=== PATIENT | male | born 1960 | race African-American/Black ===

== ENCOUNTER 2025-08-01 13:34 | Inpatient (IN) | payer OTHER ==
[~2025-08-01] VITALS: Ht 177.8 cm; Wt 110.2 kg
[2025-08-01 13:38] VITALS: O2SAT 98
[2025-08-01] MEDS: SODIUM CHLORIDE 0.9% 1,000 ML IV ONE (14:13)
[2025-08-01 14:45] LABS: BASOPHILS % 0.7 % (0.0-2.0); EOSINOPHILS % 1.4 % (0.0-5.0); HEMATOCRIT. 47.5 % (42.0-52.0); HEMOGLOBIN. 16.3 g/dL (14.0-18.0); LYMPHOCYTES % 16.9 % (20.0-50.0); MEAN PLATELET VOLUME 10.0 fl (7.4-10.4); MONOCYTES % 8.0 % (2.0-8.0); NEUTROPHILS % 73.0 % (40.0-76.0); PLATELET 304 x1000/uL (130-400); RED BLOOD CELL COUNT 5.08 mill/uL (4.7-6.1); RED CELL DISTRIBUTION WIDTH 12.8 % (11.6-14.6)
[2025-08-01 14:56] LABS: CREATININE 1.2 mg/dL (0.6-1.3); UREA NITROGEN BLOOD 14 mg/dL (9-23)
[2025-08-01 14:57] LABS: PROTEIN TOTAL 6.9 g/dL (6.0-8.3)
[2025-08-01 14:58] LABS: ASPARTATE AMINOTRANSFERASE 21 IU/L (<34); BILIRUBIN DIRECT 0.3 mg/dL (<=3.0); BILIRUBIN TOTAL 0.9 mg/dL (0.1-1.0)
[2025-08-01 14:59] LABS: TROPONIN I HIGH SENSITIVITY 64 ng/L (3.0-53)
[2025-08-01] MEDS ORDERED: NITROGLYCERIN SPRAY/4.9GM CAN TL ONE (15:15)
[2025-08-01] MEDS: NITROGLYCERIN 0.4MG TABLET SL SL PRN (15:27)
[2025-08-01] MEDS: ASPIRIN 81MG TABLET PO ONE (15:27)
[2025-08-01 16:15] VITALS: BP 147/94; PULSE 89; RESP 20; TEMP 36.9; O2SAT 96
[2025-08-01] MEDS ORDERED: ONDANSETRON HCL 4MG/2ML INJ IV PRN (16:15)
[2025-08-01] MEDS ORDERED: LORAZEPAM 0.5MG TABLET PO PRN (16:15)
[2025-08-01] MEDS ORDERED: GUAIFENESIN 200MG/10ML SUGAR FREE UDC PO PRN (16:15)
[2025-08-01] MEDS ORDERED: CLONIDINE 0.1MG TABLET PO PRN (16:15)
[2025-08-01] MEDS ORDERED: DOCUSATE SODIUM 100MG CAPSULE PO PRN (16:15)
[2025-08-01] MEDS ORDERED: ACETAMINOPHEN 325MG TABLET PO PRN ×2 (16:15)
[2025-08-01] MEDS ORDERED: IPRATROPIUM/ALBUTEROL 0.5-3(2.5)MG/3ML NEB HHN PRN (16:15)
[2025-08-01 16:31] VITALS: BP 147/94; PULSE 89; RESP 20; TEMP 36.9184
[2025-08-01] MEDS: ENOXAPARIN 120MG/0.8ML SYR SUBCUT NR (17:00)
[2025-08-01 18:52] LABS: LDL CHOLESTEROL 101.0 mg/dL (5-100); TRIGLYCERIDE 60.0 mg/dL (0-150)
[2025-08-01 18:56] LABS: T4 FREE 1.52 ng/dL (0.89-1.76)
[2025-08-01 20:47] VITALS: BP 137/82; PULSE 87; RESP 26; TEMP 36.7; O2SAT 97
[2025-08-01] MEDS: METOPROLOL TARTRATE 25MG TABLET PO SCH (20:48)
[2025-08-02] VITALS (7 sets, daily range): BP systolic 128–141; BP diastolic 80–89; PULSE 69–85; RESP 16–22; TEMP 36.7–36.8; O2SAT 97–99
[2025-08-02 03:28] LABS: TROPONIN I HIGH SENSITIVITY 139 ng/L (3.0-53)
[2025-08-02] MEDS ORDERED: VALA500T55 MT (03:30)
[2025-08-02] MEDS ORDERED: PRAV40TA58 MT (03:30)
[2025-08-02 08:17] LABS: BASOPHILS % 0.8 % (0.0-2.0); EOSINOPHILS % 5.0 % (0.0-5.0); HEMATOCRIT. 45.6 % (42.0-52.0); HEMOGLOBIN. 15.3 g/dL (14.0-18.0); LYMPHOCYTES % 36.5 % (20.0-50.0); MEAN PLATELET VOLUME 10.2 fl (7.4-10.4); MONOCYTES % 11.9 % (2.0-8.0); NEUTROPHILS % 45.8 % (40.0-76.0); PLATELET 248 x1000/uL (130-400); RED BLOOD CELL COUNT 4.86 mill/uL (4.7-6.1); RED CELL DISTRIBUTION WIDTH 12.8 % (11.6-14.6)
[2025-08-02 08:19] LABS: CREATININE 0.9 mg/dL (0.6-1.3)
[2025-08-02 08:20] LABS: UREA NITROGEN BLOOD 9 mg/dL (9-23)
[2025-08-02 08:41] LABS: TROPONIN I HIGH SENSITIVITY 68 ng/L (3.0-53)
[2025-08-02] MEDS: ASPIRIN 81MG TABLET PO SCH (09:06)
[2025-08-02] MEDS: ENOXAPARIN 120MG/0.8ML SYR SUBCUT SCH (11:59)
[2025-08-02 18:46] LABS: INR 1.0
[2025-08-03] MEDS ORDERED: ENOXAPARIN 120MG/0.8ML SYR SUBCUT SCH (06:00)
== END 2025-08-02 21:35 | disposition short-term general hospital (02) | DRG 282 ==
LOC: ER 13:34 → 3WST 15:14 → EDBEDREQ 15:15 → EDBEDREQTM 15:15
PROVIDERS: ADMIT Internal Medicine; ATTEND Internal Medicine
DX: I47.10 Supraventricular tachycardia, unspecified (principal); I21.A1 Myocardial infarction type 2; I10 Essential (primary) hypertension; E78.5 Hyperlipidemia, unspecified; Z79.899 Other long term (current) drug therapy
CPT/HCPCS: 36415; 71045; 80048; 80061; 80076; 83880; 84439; 84443; 84484; 85025; 93005; 93306; 99285; A4606; J1650; J7030